=== PATIENT | male | born 1995 | race Caucasian/White ===

== ENCOUNTER 2019-05-18 11:43 | Emergency (ER) | payer OTHER, SELFPAY ==
[2019-05-18 12:00] VITALS: BP 148/88; PULSE 90; RESP 14; TEMP 36.9; O2SAT 98
--- NOTE | 2019-05-18 12:02 | DI.RAD.S_ITS ---
PROCEDURE: XR LUMBAR SPINE 2-3V INDICATIONS: pain unknown injury TECHNIQUE: 2 views of the lumbar spine were acquired. COMPARISON: None. FINDINGS: Bones: 5 [id number] vertebrae are present. There is minimal retrolisthesis at L1-L2 and L2-L3. No vertebral body compression fractures or other definite acute fracture. No suspicious bony lesions. Soft tissues: Overlying bowel gas pattern is normal. No suspicious soft tissue calcifications. IMPRESSION: 1. No definite acute fracture or subluxation. Dictated by: Gelacio Simons M.D. on 05/18/2019 at 11:29 Approved by: Gelacio Simons M.D. on 05/18/2019 at 11:30
--- NOTE | 2019-05-18 12:02 | DI.RAD.S_ITS ---
PROCEDURE: XR CERVICAL SPINE 2V OR 3V INDICATIONS: pain x1 month, unknown injury TECHNIQUE: 3 views of the cervical spine were acquired. COMPARISON: None. FINDINGS: Bones: No fractures or dislocations to the T1 level. The lateral masses of C1 appear intact on the odontoid view. There is mild straightening of the cervical lordosis. No suspicious bony lesions. Soft tissues: No prevertebral soft tissue swelling. IMPRESSION: 1. No fracture or subluxation. Dictated by: Gelacio Simons M.D. on 05/18/2019 at 11:28 Approved by: Gelacio Simons M.D. on 05/18/2019 at 11:29
[2019-05-18] MEDS: CYCLOBENZAPRINE 10 MG TABLET PO (12:17)
[2019-05-18] MEDS: KETOROLAC 60 MG/2 ML VIAL IM (12:17)
[2019-05-18] MEDS: predniSONE 20 MG TABLET 40 MG PO (12:17)
--- NOTE | 2019-05-18 12:22 | PC.NURSE ---
Saw chiropractor [employer] unable to treat and sent to ER
--- NOTE | 2019-05-18 12:39 | ED_ITS ---
HPI - Back Pain/Injury General Chief Complaint: Back Pain/Injury Stated Complaint: Back pain and severe neck pain Time Seen by Provider: 05/18/19 11:45 Source: patient and family Mode of arrival: Ambulatory Limitations: no limitations History of Present Illness HPI Narrative: 23-year-old male former smoker without significant medical history presents with his with a chief complaint of gradually worsening neck and lower back pain over the past month or 2. He denies any specific injury or event which triggered this but states that it has been gradually worsening. He has seen chiropractors and has had very little in the way of improvement. Is primary sources of pain or the base of his neck and also his lower back. He denies any radiation into his extremities. He denies numbness, tingling or weakness. He denies any fever chills nor neurologic symptoms such as blurred vision, trouble with speech. He has had no trouble controlling bowel or bladder and denies foot drop. Related Data Previous Rx's Medication Instructions Recorded cyclobenzaprine 10 mg PO TID PRN #14 tab 05/18/19 hydrocodone-acetaminophen 1 tab PO Q4-6H PRN #10 tab 05/18/19 ketorolac 10 mg PO Q6H PRN #14 tab 05/18/19 prednisone 20 mg PO DAILY #5 tab 05/18/19 Review of Systems Constitutional Constitutional: Denies chills, Denies fatigue, Denies fever(s), Denies frequent falls, Denies lethargy and Denies weakness Eyes Eyes: Denies change in vision, Denies eye discharge, Denies irritation and Denies loss of vision ENT Ears, Nose, Mouth, and Throat: Denies change in voice, Denies dizziness, Reports neck pain, Denies sore throat and Denies throat swelling Cardiovascular Cardiovascular: Denies chest pain, Denies irregular heart rhythm, Denies lightheadedness, Denies palpitations, Denies dyspnea, Denies dyspnea on exertion and Denies orthopnea Respiratory Respiratory: Denies cough, Denies dyspnea, Denies dyspnea on exertion and Denies wheezing Gastrointestinal Gastrointestinal: Denies abdominal pain, Denies change in bowel habits, Denies diarrhea, Denies nausea and Denies vomiting Genitourinary Genitourinary: Denies hematuria, Denies flank pain, Denies urinary incontinence and Denies urinary urgency Musculoskeletal Musculoskeletal: Reports back pain, Denies muscle weakness, Reports neck pain, Denies numbness and Denies tingling Integumentary/Breasts Skin/Breast: Denies pruritus, Denies erythema, Denies rash and Denies wounds Neurologic Neurologic: Denies behavioral changes, Denies confusion, Denies dizziness, Denies frequent falls, Denies loss of vision, Denies numbness, Denies tingling and Denies weakness Psychiatric Psychiatric: Denies anxiety, Denies behavioral changes, Denies confusion, Denies depression, Denies homicidal ideation and Denies suicidal ideation Endocrine Endocrine: Denies fatigue, Denies flushing and Denies palpitations Hematologic/Lymphatic Hematologic/Lymphatic: Denies easy bruising Allergic/Immunologic Allergic/Immunologic: Denies urticaria, Denies throat swelling and Denies wheezing [facility] Medical History (Updated 05/18/19 @ 16:08 by Austyn Mcbride DO) Patient denies medical problems (Acute) Social History Smoking Status: Current every day smoker Social History Smoking Status: Current every day smoker Exam Narrative Exam Narrative: GENERAL: [23] year old patient appears stated age. Well- nourished, well-developed patient, in mild distress. Obviously uncomfortable, Felipe slowly and gingerly HEAD: Atraumatic. Normocephalic. EYES: Pupils equal round and reactive. Extraocular motions intact. No scleral icterus. No injection or drainage. ENT: Nose without bleeding, purulent drainage. Throat without erythema, tonsillar hypertrophy or exudate. Airway patent. NECK: Trachea midline. No midline tenderness, there is tenderness to palpation of the cervical paraspinal muscles. No worsening with axial load CARDIOVASCULAR: Regular rate and rhythm without murmurs, gallops, or rubs. RESPIRATORY: Clear to auscultation. Breath sounds equal bilaterally. No wheezes, rales, or rhonchi. GASTROINTESTINAL: Abdomen soft, non-tender, nondistended. EXTREMITIES: No edema or joint tenderness. BACK: No midline tenderness or step-offs. There is tenderness to palpation of the paraspinal lumbar musculature NEURO: AOx3. 5/5 strength, intact reflexes and sensation of all 4 extremities SKIN: No rash or erythema of visible areas Initial Vital Signs Initial Vital Signs: Vital Signs Temperature 98.4 F 05/18/19 12:00 Pulse Rate 90 05/18/19 12:00 Respiratory Rate 14 05/18/19 12:00 Blood Pressure 148/88 H 05/18/19 12:00 Pulse Oximetry 98 05/18/19 12:00 Course Orders Ordered: ED Orders 05/18/19 12:02 XR cervical spine 2V or 3V Stat XR lumbar spine 2-3V Stat Discontinued Medications Cyclobenzaprine HCl (Flexeril) 10 mg PO NOW ONE Stop: 05/18/19 12:03 Last Admin: 05/18/19 12:17 Dose: 10 mg Documented by: LAILTA Ketorolac Tromethamine (Toradol) 60 mg IM NOW ONE Stop: 05/18/19 12:03 Last Admin: 05/18/19 12:17 Dose: 60 mg Documented by: LALITA Prednisone (Deltasone) 40 mg PO NOW ONE Stop: 05/18/19 12:03 Last Admin: 05/18/19 12:17 Dose: 40 mg Documented by: LALITA Vital Signs Vital signs: Vital Signs - 8 hr 05/18/19 12:00 05/18/19 12:57 Temperature 98.4 F Pulse Rate 90 86 Respiratory Rate 14 16 Blood Pressure 148/88 H 138/76 Pulse Oximetry 98 99 MDM - Back Pain/Injury Imaging Data Cervical / Lumbar Xray: Radiologist's impression: [address] [address] XRay Report Signed Patient: Paulino Cope RMR#: [id number] : 1995Acct:[id number] Age/Sex: 23 / MDate of Service: 05/18/19 Loc: ED Accession Number: [id number] Procedure: XR cervical spine 2V or 3V Ordering Provider: Austyn Mcbride D.O. PROCEDURE: XR CERVICAL SPINE 2V OR 3V INDICATIONS: pain x1 month, unknown injury TECHNIQUE: 3 views of the cervical spine were acquired. COMPARISON: None. FINDINGS: Bones: No fractures or dislocations to the T1 level. The lateral masses of C1 appear intact on the odontoid view. There is mild straightening of the cervical lordosis. No suspicious bony lesions. Soft tissues: No prevertebral soft tissue swelling. IMPRESSION: 1. No fracture or subluxation. Dictated by: Gelacio Simons M.D. on 05/18/2019 at 11:28 Approved by: Gelacio Simons M.D. on 05/18/2019 at 11:29 Paulino Cope 23 M [address] [address] XRay Report Signed Patient: Paulino Cope RMR#: [id number] : 1995Acct:[id number] Age/Sex: 23 / MDate of Service: 05/18/19 Loc: ED Accession Number: [id number] Procedure: XR lumbar spine 2-3V Ordering Provider: Austyn Mcbride D.O. PROCEDURE: XR LUMBAR SPINE 2-3V INDICATIONS: pain unknown injury TECHNIQUE: 2 views of the lumbar spine were acquired. COMPARISON: None. FINDINGS: Bones: 5 [id number] vertebrae are present. There is minimal retrolisthesis at L1-L2 and L2-L3. No vertebral body compression fractures or other definite acute fracture. No suspicious bony lesions. Soft tissues: Overlying bowel gas pattern is normal. No suspicious soft tissue calcifications. IMPRESSION: 1. No definite acute fracture or subluxation. Dictated by: Gelacio Simons M.D. on 05/18/2019 at 11:29 Approved by: Gelacio Simons M.D. on 05/18/2019 at 11:30 Discharge Plan Departure Patient Disposition: Home Clinical Impression: Acute neck pain Strain of lumbar region Qualifiers: Encounter type: initial encounter Qualified Code(s): S39.012A - Strain of musc le, fascia and tendon of lower back, initial encounter Discharge Date/Time: 05/18/19 12:59 Instructions: DI for Muscle Strain Activity Restrictions/Additional Instructions: *You have been diagnosed with [acute neck and back pain.] *What to do: *Take medications as directed *Follow up with your primary care provider in 2-3 days, call for an appointment. Let them know you were seen in the Emergency Department and that we ask that you be seen in follow up *Return to ER if you should have any new, worsening or concerning symptoms Prescriptions: New cyclobenzaprine 10 mg tablet 10 mg PO TID PRN (Reason: muscle spasm) Qty: 14 RF: 0 hydrocodone-acetaminophen 5-325 mg tablet 1 tab PO Q4-6H PRN (Reason: pain) Qty: 10 RF: 0 prednisone 20 mg tablet 20 mg PO DAILY Qty: 5 RF: 0 ketorolac 10 mg tablet 10 mg PO Q6H PRN (Reason: pain) Qty: 14 RF: 0 Referrals: [facility] [Outside]
[2019-05-18 12:57] VITALS: BP 138/76; PULSE 86; RESP 16; O2SAT 99
== END 2019-05-18 12:59 | disposition home or self-care (01) ==
PROVIDERS: Emergency Provider Emergency Medicine
DX: M54.2 Cervicalgia (principal); S39.012A Strain of muscle, fascia and tendon of lower back, initial encounter
CPT/HCPCS: 72040; 72100; 96372; 99282; 99283; J1885